=== PATIENT | female | born 1995 | race Two or more races ===

== ENCOUNTER 2019-03-31 01:19 | Inpatient (IN) | payer OTHER ==
[2019-03-31] MEDS ORDERED: Ondansetron 4 MG/2 ML SDV IVPUSH PRN (03:27)
[2019-03-31] MEDS ORDERED: Sodium Chloride 0.9% 10 ML Syringe FLUSH PRN (03:27)
[2019-03-31] MEDS ORDERED: Nalbuphine 10 MG/1 ML Vial IVPUSH PRN (03:27)
[2019-03-31] MEDS ORDERED: Butorphanol 1 MG/ML SDV IVPUSH PRN (03:27)
[2019-03-31] MEDS ORDERED: Sodium Chloride 0.9% 10 ML SDV IV PRN (03:27)
[2019-03-31] MEDS ORDERED: Carboprost Tromethamine 250 MCG/1 ML Amp IM PRN (03:27)
[2019-03-31] MEDS ORDERED: Methylergonovine 0.2 MG/1 ML Amp IM PRN (03:27)
[2019-03-31] MEDS ORDERED: Misoprostol 200 MCG Tab PO PRN (03:27)
[2019-03-31] MEDS ORDERED: Sodium Chloride 0.9% 2.5 ML Syringe FLUSH PRN (03:27)
[2019-03-31] MEDS ORDERED: Lidocaine 1% 50 ML MDV INJECT PRN (03:27)
[2019-03-31] MEDS ORDERED: Water For Irrigation,Sterile 1,000 ML Container IRR PRN (03:27)
[2019-03-31] MEDS ORDERED: Tranexamic Acid 1,000 MG in Sodium Chloride 0.9% 100 ML IV PRN (03:27)
[2019-03-31] MEDS ORDERED: Oxytocin/0.9 % Sodium Chloride 30 UNIT/500 ML BAG IV SCH (03:30)
[2019-03-31] MEDS: Lactated Ringers 1,000 ML IV SCH ×2 (03:47→04:50)
[2019-03-31] MEDS ORDERED: Ropivacaine HCl/PF 100 ML ONE ×2 (05:24→16:06)
[2019-03-31] MEDS ORDERED: fentaNYL 100 MCG/2 ML SDV ONE ×2 (05:24→16:11)
--- NOTE | 2019-03-31 05:41 | PCM.PREANE ---
Preanesthetic Assessment - Anesthesia/Transfusion/Family Hx Anesthesia History: Prior Anesthesia Without Reaction Family History of Anesthesia Reaction: No Transfusion History: No Prior Transfusion(s) - Physical Assessment NPO Status Date: 03/30/19 NPO Status Time: 20:00 Height: 1.52 m Weight: 63.503 kg ASA Class: 1 - Lab Values: Laboratory Last Values WBC 13.29 K/uL (4.0-11.0) H 03/31/19 03:45 RBC 3.72 M/uL (4.30-5.90) L 03/31/19 03:45 Hgb 11.9 g/dL (12.0-16.0) L 03/31/19 03:45 Hct 35.1 % (36.0-46.0) L 03/31/19 03:45 MCV 94.4 fL (80.0-98.0) 03/31/19 03:45 MCH 32.0 pg (27.0-32.0) 03/31/19 03:45 MCHC 33.9 g/dL (31.0-37.0) 03/31/19 03:45 RDW Std Deviation 43.9 fl (28.0-62.0) 03/31/19 03:45 RDW Coeff of Mack 13 % (11.0-15.0) 03/31/19 03:45 Plt Count 148 K/uL (150-400) L 03/31/19 03:45 MPV 12.90 fL (7.40-12.00) H 03/31/19 03:45 Nucleated RBC % 0.0 /100WBC 03/31/19 03:45 Nucleated RBCs # 0 K/uL 03/31/19 03:45 Blood Type O NEGATIVE 03/31/19 03:45 Antibody Screen NEGATIVE 03/31/19 03:45 - Allergies Allergies/Adverse Reactions: Allergies Allergy/AdvReac Type Severity Reaction Status Date / Time No Known Allergies Allergy Verified 03/31/19 01:47 - Acknowledgements Anesthesia Type Planned: Epidural Pt an Appropriate Candidate for the Planned Anesthesia: Yes Alternatives and Risks of Anesthesia Discussed w Pt/Guardian: Yes Pt/Guardian Understands and Agrees with Anesthesia Plan: Yes PreAnesthesia Questionnaire 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: Psychiatric History: Reports: Depression - Past Surgical History HEENT Surgical History: Reports: Oral Surgery - SUBSTANCE USE Smoking Status *Q: Current Every Day Smoker Tobacco Use Within Last Twelve Months: Cigarettes Recreational Drug Use History: No - HOME MEDS Home Medications: Home Meds Pnv No.95/Ferrous Fum/Folic AC [ Tablet] 1 tab PO DAILY 03/31/19 [ History] - CURRENT (IN HOUSE) MEDS Current Meds: Current Medications Butorphanol Tartrate (Stadol) 1 mg IVPUSH Q1H PRN PRN Reason: Pain Carboprost Tromethamine (Hemabate Ds) 250 mcg IM ASDIRECTED PRN PRN Reason: Post Hemorrhage Tranexamic Acid 1,000 mg/ (Sodium Chloride) 110 mls @ 660 mls/hr IV ONETIME PRN PRN Reason: Bleeding Lactated Ringer's (Ringers, Lactated) 1,000 mls @ 150 mls/hr IV ASDIRECTED AUBREY Last Admin: 03/31/19 04:50 Dose: 150 mls/hr Oxytocin/Sodium Chloride (Oxytocin 30 Unit/500 Ml-Ns) 30 unit in 500 mls @ 999 mls/hr IV TITRATE [facility] Lidocaine HCl (Xylocaine 1%) 50 ml INJECT ONETIME PRN PRN Reason: Laceration repair Methylergonovine Maleate (Methergine) 0.2 mg IM ASDIRECTED PRN PRN Reason: Post Hemorrhage Misoprostol (Cytotec) 200 mcg PO ONETIME PRN PRN Reason: Post Hemorrhage Nalbuphine HCl (Nubain) 10 mg IVPUSH Q1H PRN PRN Reason: Pain (severe 7-10) Ondansetron HCl (Zofran) 4 mg IVPUSH Q6H PRN PRN Reason: Nausea/Vomiting Sodium Chloride (Saline Flush) 10 ml FLUSH ASDIRECTED PRN PRN Reason: Keep Vein Open Sodium Chloride (Saline Flush) 2.5 ml FLUSH ASDIRECTED PRN PRN Reason: Keep Vein Open Sodium Chloride (Normal Saline) 10 ml IV ASDIRECTED PRN PRN Reason: IV Use Sterile Water (Sterile Water For Irrigation) 1,000 ml IRR ASDIRECTED PRN PRN Reason: delivery Discontinued Medications Fentanyl (Sublimaze) Confirm Administered Dose 100 mcg .ROUTE .STK-MED ONE Stop: 03/31/19 05:25 Ropivacaine (Naropin 0.2%) Confirm Administered Dose 100 mls @ as directed .ROUTE .[facility] Stop: 03/31/19 05:25
--- NOTE | 2019-03-31 05:45 | PCM.PRNOTE ---
- Free Text/Narrative Note: Anes Note Patient requests epidural for L&D. Sitting position. Level L3-L4 midline approach. Sterile technique. Chloraprep scrub to lumbar area. Sterle fenestrated drape applied. Epidural space easily achieved single attempt with ease using ANURAG technique. ANURAG at 3 cm. Cath threaded 5 cm with ease. Cath secured at skin at 8 cm using sterile clear adhesive dressing. 0530 Test 3 cc 1.5% lidow tih epi negative. 0533 Load 10 cc 0.2% ropivicaine with 1 mcg cc fentanly in slow divided doses. 0538 Pump started with same solution at 8 cc hr with 6 cc q 20 min prn bolus. Quinn well. 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
--- NOTE | 2019-03-31 16:28 | PCM.SN ---
- Free Text/Narrative Note: Active labor. Pushing. Epidural empty. Off x 20 minutes. Due to significant discomfort, bolus 8ml 0.2% Naropin + 100mcg Fentanyl given over 6 minutes. Pain improved 8 minutes post. Will begin pushing.
[2019-03-31] MEDS ORDERED: Benzocaine/Menthol 20%-0.5% Spray 78 GM Cannister TOP PRN (17:53)
[2019-03-31] MEDS ORDERED: Bisacodyl 10 MG Supp RECTAL PRN (17:53)
[2019-03-31] MEDS ORDERED: Lanolin 100% Cream 7 GM Tube TOP PRN (17:53)
[2019-03-31] MEDS ORDERED: Witch Hazel Medicated Pads 40/Jar TOP PRN (17:53)
[2019-03-31] MEDS ORDERED: Ibuprofen 400 MG Tab PO PRN (17:53)
[2019-03-31] MEDS ORDERED: Acetaminophen 500 MG Tab PO PRN (17:53)
[2019-03-31] MEDS ORDERED: Docusate Sodium 100 MG Cap PO PRN (17:53)
--- NOTE | 2019-03-31 22:37 | OR ---
SURGEON: Carlos Moya MD DATE OF PROCEDURE: 03/31/2019 INDICATION: A 23-year-old G3, P2-0-0-2, at 40 weeks and 0 days, presenting in early labor. She made cervical change with regular contractions. Category 1 tracing. She had an uncomplicated . She was Rh negative and received RhoGAM. AROM was performed with clear fluid for augmentation of labor. She received an epidural for anesthesia. She progressed to fully dilated and started pushing with contractions. PREPROCEDURE DIAGNOSES: 1. Lopez intrauterine at 40 weeks and 0 days. 2. Active 2nd stage of labor. POSTOPERATIVE DIAGNOSES: 1. Lopez intrauterine at 40 weeks and 0 days. 2. Active 2nd stage of labor. PROCEDURE PERFORMED: Normal spontaneous vaginal delivery. ANESTHESIA: Epidural. ESTIMATED BLOOD LOSS: 300 mL. FINDINGS: Lopez intrauterine in cephalic presentation Male fetus, Weight of [id number]. 7 and 8 DESCRIPTION OF PROCEDURE: The patient pushed with contractions for about 1.5 hours. The head descended from 0 to +2 station. Category I tracing. She became fatigued and rested for approximately 30 minutes. Her epidural was bolused. She started pushing again with contractions for another 30 minutes. The head then delivered in occiput anterior position, restituted ROT. The anterior shoulder delivered easily, followed by the posterior shoulder and remaining body. No nuchal cord was noted. The baby was placed on maternal chest and evaluated by nursery staff. The baby initially was pale and did not cry, after stimulation quickly became pink and was crying vigorously and moving all extremities. The umbilical cord was clamped and cut after 60 seconds and no longer pulsating. Umbilical cord gases were obtained. The placenta was removed with gentle traction on the umbilical cord. The perineum was examined, and no lacerations were noted. Fundal massage was performed and uterus was firm and at the umbilicus. The bleeding was found to be minimal. The patient tolerated the procedure well and was given care instructions. SE / BENNY /[id number] MTDD
[2019-03-31] MEDS: Ibuprofen 800 MG Tab PO PRN (22:47)
[2019-04-01] MEDS: Acetaminophen 500 MG Tab PO PRN ×2 (02:19→18:04)
[2019-04-01] MEDS: Ibuprofen 800 MG Tab PO PRN ×3 (04:37→18:05)
--- NOTE | 2019-04-01 11:46 | PCM48HPAN ---
Post Anesthesia Note - EVALUATION WITHIN 48HRS OF ANESTHETIC Vital Signs in Normal Range: Yes Patient Participated in Evaluation: Yes Respiratory Function Stable: Yes Airway Patent: Yes Cardiovascular Function Stable: Yes Hydration Status Stable: Yes Pain Control Satisfactory: Yes Nausea and Vomiting Control Satisfactory: Yes Mental Status Recovered: Yes Vital Signs: Last Vital Signs Temp 36.5 C 04/01/19 08:22 Pulse 90 04/01/19 04:41 Resp 14 04/01/19 08:22 BP 114/77 04/01/19 08:22 Pulse Ox 96 04/01/19 08:22 - COMMENTS/OBSERVATIONS Free Text/Narrative:: did well. No problems noted.
--- NOTE | 2019-04-01 11:54 | PCM.PNPP ---
- General Info Date of Service: 04/01/19 Functional Status: Reports: Pain Controlled, Tolerating Diet, Ambulating, Urinating - Review of Systems General: Reports: No Symptoms HEENT: Reports: No Symptoms Pulmonary: Reports: No Symptoms Cardiovascular: Reports: No Symptoms Gastrointestinal: Reports: No Symptoms Genitourinary: Reports: No Symptoms Musculoskeletal: Reports: No Symptoms Skin: Reports: No Symptoms Neurological: Reports: No Symptoms Psychiatric: Reports: No Symptoms - Patient Data Vital Signs - Most Recent: Last Vital Signs Temp 36.5 C 04/01/19 08:22 Pulse 90 04/01/19 04:41 Resp 14 04/01/19 08:22 BP 114/77 04/01/19 08:22 Pulse Ox 96 04/01/19 08:22 Weight - Most Recent: 140 lb I&O - Last 24 Hours: Intake & Output 03/31/19 04/01/19 04/01/19 22:59 06:59 14:59 Intake Total 2 Balance 2 Lab Results - Last 24 Hours: Laboratory Results - last 24 hr 03/31/19 04/01/19 Range/Units 18:35 05:50 Hgb 10.4 L (12.0-16.0) g/dL Hct 30.9 L (36.0-46.0) % Screen NEGATIVE (NEGATIVE) RhIG Candidate? YES Rhogam Indicated YES, BABY RH POS H Med Orders - Current: Current Medications Acetaminophen (Tylenol Extra Strength) 500 mg PO Q4H PRN PRN Reason: Pain Acetaminophen (Tylenol Extra Strength) 1,000 mg PO Q4H PRN PRN Reason: Pain Last Admin: 04/01/19 02:19 Dose: 1,000 mg Benzocaine/Menthol (Dermoplast Pain Relief 20%-0.5% [place]) 78 gm TOP ASDIRECTED PRN PRN Reason: Perineal Comfort Measure Last Admin: 03/31/19 18:26 Dose: 1 spray Bisacodyl (Dulcolax) 10 mg RECTAL ONETIME PRN PRN Reason: Constipation Butorphanol Tartrate (Stadol) 1 mg IVPUSH Q1H PRN PRN Reason: Pain Carboprost Tromethamine (Hemabate Ds) 250 mcg IM ASDIRECTED PRN PRN Reason: Post Hemorrhage Docusate Sodium (Colace) 100 mg PO BID PRN PRN Reason: Constipation Emollient Ointment (Lansinoh Hpa) 0 gm TOP ASDIRECTED PRN PRN Reason: Sore Nipples Last Admin: 03/31/19 18:26 Dose: 1 gm Tranexamic Acid 1,000 mg/ (Sodium Chloride) 110 mls @ 660 mls/hr IV ONETIME PRN PRN Reason: Bleeding Lactated Ringer's (Ringers, Lactated) 1,000 mls @ 150 mls/hr IV ASDIRECTED [facility] Last Admin: 03/31/19 04:50 Dose: 150 mls/hr Oxytocin/Sodium Chloride (Oxytocin 30 Unit/500 Ml-Ns) 30 unit in 500 mls @ 999 mls/hr IV TITRATE [facility] Last Admin: 03/31/19 17:19 Dose: 999 mls/hr Ibuprofen (Motrin) 400 mg PO Q4H PRN PRN Reason: Pain Ibuprofen (Motrin) 800 mg PO Q6H PRN PRN Reason: Pain Last Admin: 04/01/19 04:37 Dose: 800 mg Lidocaine HCl (Xylocaine 1%) 50 ml INJECT ONETIME PRN PRN Reason: Laceration repair Methylergonovine Maleate (Methergine) 0.2 mg IM ASDIRECTED PRN PRN Reason: Post Hemorrhage Misoprostol (Cytotec) 200 mcg PO ONETIME PRN PRN Reason: Post Hemorrhage Nalbuphine HCl (Nubain) 10 mg IVPUSH Q1H PRN PRN Reason: Pain (severe 7-10) Ondansetron HCl (Zofran) 4 mg IVPUSH Q6H PRN PRN Reason: Nausea/Vomiting Sodium Chloride (Saline Flush) 10 ml FLUSH ASDIRECTED PRN PRN Reason: Keep Vein Open Sodium Chloride (Saline Flush) 2.5 ml FLUSH ASDIRECTED PRN PRN Reason: Keep Vein Open Sodium Chloride (Normal Saline) 10 ml IV ASDIRECTED PRN PRN Reason: IV Use Sterile Water (Sterile Water For Irrigation) 1,000 ml IRR ASDIRECTED PRN PRN Reason: delivery Last Admin: 03/31/19 17:40 Dose: 1,000 ml Witch Marcy (Tucks) 1 pad TOP ASDIRECTED PRN PRN Reason: comfort care Last Admin: 03/31/19 18:25 Dose: 1 pad Discontinued Medications Fentanyl (Sublimaze) Confirm Administered Dose 100 mcg .ROUTE .STK-MED ONE Stop: 03/31/19 05:25 Last Admin: 03/31/19 06:14 Dose: Not Given Fentanyl (Sublimaze) Confirm Administered Dose 100 mcg .ROUTE .STK-MED ONE Stop: 03/31/19 16:12 Last Admin: 03/31/19 21:50 Dose: Not Given Ropivacaine (Naropin 0.2%) Confirm Administered Dose 100 mls @ as directed .ROUTE .STK-MED ONE Stop: 03/31/19 05:25 Last Admin: 03/31/19 06:14 Dose: Not Given Ropivacaine (Naropin 0.2%) Confirm Administered Dose 100 mls @ as directed .ROUTE .STK-MED ONE Stop: 03/31/19 16:07 Last Admin: 03/31/19 21:50 Dose: Not Given - Interaction Infant Disposition, : to Nursery Feeding: Breastfed Infant; Nursed Well Support Person: - Recovery Exam Fundal Tone: Firm Fundal Level: 1 Fingerbreadths Below Umbilicus Fundal Placement: Midline Lochia Amount: Scant Lochia Color: Rubra/Red Perineum Description: Edematous Episiotomy/Laceration: None Bladder Status: Voiding - Exam General: Alert, Oriented, Cooperative, No Acute Distress HEENT: Pupils Equal, Pupils Reactive Neck: Supple, Trachea Midline, No JVD Lungs: Normal Respiratory Effort GI/Abdominal Exam: Normal Bowel Sounds, Soft, Non-Tender, No Distention Extremities: Normal Inspection, Normal Range of Motion, Non-Tender, No Pedal Edema Skin: Warm, Dry, Intact Neurological: No New Focal Deficit Psy/Mental Status: Alert, Normal Affect, Normal Mood - Problem List Review Problem List Initiated/Reviewed/Updated: Yes - My Orders Last 24 Hours: My Active Orders 03/31/19 17:53 Acetaminophen [Tylenol Extra Strength] 1,000 mg PO Q4H PRN Acetaminophen [Tylenol Extra Strength] 500 mg PO Q4H PRN Benzocaine/Menthol [Dermoplast Pain Relief 20%-0.5% [place]] 78 gm TOP ASDIRECTED PRN Docusate Sodium [Colace] 100 mg PO BID PRN Ibuprofen [Motrin] 400 mg PO Q4H PRN Ibuprofen [Motrin] 800 mg PO Q6H PRN Lanolin [Lansinoh HPA] See Dose Instructions TOP ASDIRECTED PRN Witch Marcy [Tucks] 1 pad TOP ASDIRECTED PRN bisacodyL [Dulcolax] 10 mg RECTAL ONETIME PRN Breast Pump [WOMSER] Per Unit Routine 03/31/19 17:54 Patient Status [ADT] Routine May Shower [RC] ASDIRECTED Up ad Camille [RC] ASDIRECTED Vital Signs [RC] PER UNIT ROUTINE Assess Lochia [WOMSER] Per Unit Routine Assess Uterine Involution [WOMSER] Per Unit Routine Ice Therapy [OM.PC] Per Unit Routine Perineal Care [OM.PC] Per Unit Routine Peripheral IV Discontinue [OM.PC] Routine Sitz Bath [OM.PC] Per Unit Routine 03/31/19 Dinner Regular Diet [DIET] - Assessment Assessment:: 23yo PPD1 s/p . Stable and recovering well. - Plan Plan:: Vital stable Hgb 10.4, bleeding minimal. No s/s of anemia. baby well. Anticipate discharge home tomorrow.
== END 2019-04-01 20:51 | disposition home or self-care (01) | DRG 807 ==
LOC: MW.OBCHECK 01:19 → MW.OB 01:20 → MW.OBCHECK 03:27 → MW.OB 03:27 → OBSVTOIN 17:18 → MW.OB 19:45
PROVIDERS: ADMIT Obstetrics & Gynecology; ATTEND Obstetrics & Gynecology
PROC: 10E0XZZ Delivery of Products of Conception, External Approach (ICD-10-PCS; principal; 2019-03-31)
PROC: 10907ZC Drainage of Amniotic Fluid, Therapeutic from Products of Conception, Via Natural or Artificial Opening (ICD-10-PCS; 2019-03-31)
PROC: 3E0R3BZ Introduction of Anesthetic Agent into Spinal Canal, Percutaneous Approach (ICD-10-PCS; 2019-03-31)
PROC: 00HU33Z Insertion of Infusion Device into Spinal Canal, Percutaneous Approach (ICD-10-PCS; 2019-03-31)
PROC: 3E0334Z Introduction of Serum, Toxoid and Vaccine into Peripheral Vein, Percutaneous Approach (ICD-10-PCS; 2019-04-01)
DX: O48.0 Post-term pregnancy (principal); Z37.0 Single live birth; Z3A.40 40 weeks gestation of pregnancy; O26.893 Other specified pregnancy related conditions, third trimester; Z67.41 Type O blood, Rh negative; O99.334 Smoking (tobacco) complicating childbirth; F17.210 Nicotine dependence, cigarettes, uncomplicated
CPT/HCPCS: 01967; 36415; 36430; 51702; 59025; 59409; 85014; 85018; 85027; 85460; 86593; 86850; 86900; 86901; A9270-GY; J2590; J2792; J2795; J3010; J7120

== ENCOUNTER 2020-06-16 12:47 | Emergency (ER) | payer BC, OTHER ==
--- NOTE | 2020-06-16 13:13 | PCM.EKG ---
#1 Interpretation EKG Date: 06/16/20 Time: 12:50 Rhythm: Other (sinus tach) Rate (Beats/Min): 108 ST-T: Normal
[2020-06-16 13:47] LABS: BLOOD UREA NITROGEN,BUN 11 mg/dL (7.0-18.0); CARBON DIOXIDE,CO2 29.2 mmol/L (21.0-32.0); CHLORIDE,CL 106 mmol/L (98-107); GLUCOSE RANDOM 98 mg/dL (74-106); LIPASE 59 U/L (73-393); POTASSIUM,K 4.4 mmol/L (3.5-5.1); SODIUM,NA 141 mmol/L (136-145)
--- NOTE | 2020-06-16 13:50 | EDM.PDOC ---
ED HPI GENERAL MEDICAL PROBLEM - General Chief Complaint: Cardiovascular Problem Stated Complaint: CHEST PAIN, TIGHTNESS IN CHEST Time Seen by Provider: 06/16/20 12:53 Source of Information: Reports: Patient History Limitations: Reports: No Limitations - History of Present Illness INITIAL COMMENTS - FREE TEXT/NARRATIVE: Presents reporting chest pain. Patient states that yesterday morning she felt some tightness under her breast bilaterally that increased with a deep breath. No nausea, shortness of breath, diaphoresis, recent upper respiratory infection, fever. She continues to breast-feed her [id number] child in the evenings. No breast tenderness, swelling or redness. She had a TSH drawn in the clinic last month because her PCP thought her thyroid was prominent. That was normal. She is sexually active, not on control, LMP last week. No abdominal pain, diarrhea, constipation, nausea, vomiting. No dysuria. She states she is "naturally thin". She does not smoke. 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: Psychiatric History: Reports: Depression - Past Surgical History HEENT Surgical History: Reports: Oral Surgery Social & Family History - Family History Cardiac: Reports: High Cholesterol, Hypertension OBGYN: Reports: Endometriosis, Musculoskeletal: Reports: Fibromyalgia Psychiatric: Reports: Anxiety, Depression, Other (See Below) Other Psychiatric Family History: alcohol abuse Endocrine/Metabolic: Reports: Diabetes, type II Oncologic: Reports: Lung, Other (See Below) Other Oncologic Family History: mesothelioma - Caffeine Use Caffeine Use: Reports: Soda ED ROS GENERAL - Review of Systems Review Of Systems: Comprehensive ROS is negative, except as noted in HPI. ED EXAM, GENERAL - Physical Exam Exam: See Below Exam Limited By: No Limitations General Appearance: Alert, No Apparent Distress Ears: Normal External Exam Throat/Mouth: Normal Inspection Head: Atraumatic, Normocephalic Neck: Normal Inspection, Supple. No: Lymphadenopathy (L), Lymphadenopathy (R), Thyromegaly Respiratory/Chest: No Respiratory Distress, Lungs Clear, Normal Breath Sounds Cardiovascular: Normal Peripheral Pulses, Regular Rate, Rhythm, No Murmur GI/Abdominal: Soft Extremities: Normal Inspection Neurological: Alert, Oriented Psychiatric: Normal Affect, Normal Mood Skin Exam: Warm, Dry, Intact, Normal Color, No Rash Lymphatic: No Adenopathy #1 Interpretation EKG Date: 06/16/20 Time: 12:50 Rhythm: NSR Rate (Beats/Min): 108 [place]: Normal P-Wave: Present QRS: Normal ST-T: Normal QT: Normal Comparison: NA - No Prior EKG Course - Vital Signs Last Recorded V/S: Last Vital Signs Temp 36.1 C 06/16/20 12:53 Pulse 96 06/16/20 13:47 Resp 18 06/16/20 12:53 BP 95/60 06/16/20 13:47 Pulse Ox 96 06/16/20 13:47 - Orders/Labs/Meds Orders: Active Orders 24 hr Category Date Time Status Cardiac Monitoring [RC] . DIRECTED Care 06/16/20 13:04 Ordered EKG Documentation Completion [RC] STAT Care 06/16/20 13:05 Ordered Pulse Oximetry [RC] ASDIRECTED Care 06/16/20 13:04 Ordered Labs: Laboratory Tests 06/16/20 06/16/20 Range/Units 13:16 13:16 WBC 8.43 (4.0-11.0) K/uL RBC 4.36 (4.30-5.90) M/uL Hgb 13.9 (12.0-16.0) g/dL Hct 41.7 (36.0-46.0) % MCV 95.6 (80.0-98.0) fL MCH 31.9 (27.0-32.0) pg MCHC 33.3 (31.0-37.0) g/dL RDW Std Deviation 44.8 (28.0-62.0) fl RDW Coeff of Mack 13 (11.0-15.0) % Plt Count 208 (150-400) K/uL MPV 11.80 (7.40-12.00) fL Neut % (Auto) 53.3 (48.0-80.0) % Lymph % (Auto) 34.6 (16.0-40.0) % [place] % (Auto) 7.8 (0.0-15.0) % Eos % (Auto) 3.9 (0.0-7.0) % Baso % (Auto) 0.4 (0.0-1.5) % Neut # (Auto) 4.5 (1.4-5.7) K/uL Lymph # (Auto) 2.9 H (0.6-2.4) K/uL [place] # (Auto) 0.7 (0.0-0.8) K/uL Eos # (Auto) 0.3 (0.0-0.7) K/uL Baso # (Auto) 0.0 (0.0-0.1) K/uL Nucleated RBC % 0.0 /100WBC Nucleated RBCs # 0 K/uL Sodium 141 (136-145) mmol/L Potassium 4.4 (3.5-5.1) mmol/L Chloride 106 (98-107) mmol/L Carbon Dioxide 29.2 (21.0-32.0) mmol/L BUN 11 (7.0-18.0) mg/dL Creatinine 0.8 (0.6-1.0) mg/dL Est Cr Clr Drug Dosing TNP Estimated GFR (MDRD) > 60.0 ml/min Glucose 98 (74-106) mg/dL Calcium 8.6 (8.5-10.1) mg/dL Total Bilirubin 0.3 (0.2-1.0) mg/dL AST 6 L (15-37) IU/L ALT 15 (14-63) IU/L Alkaline Phosphatase 79 (46-116) U/L Troponin I < 0.050 (0.000-0.056) ng/mL Total Protein 7.0 (6.4-8.2) g/dL Albumin 3.9 (3.4-5.0) g/dL Globulin 3.1 (2.6-4.0) g/dL Albumin/Globulin Ratio 1.3 (0.9-1.6) Lipase 59 L (73-393) U/L - Re-Assessments/Exams Free Text/Narrative Re-Assessment/Exam: 06/16/20 14:20 Patient states that she only has the pain on a deep breath and it feels more like "a muscle spasm". Departure - Departure Time of Disposition: 14:21 Disposition: Home, Self-Care 01 Condition: Good Clinical Impression: Chest wall pain Forms: ED Department Discharge Additional Instructions: The following information is given to patients seen in the emergency department who are being discharged to home. This information is to outline your options for follow-up care. We provide all patients seen in our emergency department with a follow-up referral. The need for follow-up, as well as the timing and circumstances, are variable depending upon the specifics of your emergency department visit. If you don't have a primary care physician on staff, we will provide you with a referral. We always advise you to contact your personal physician following an emergency department visit to inform them of the circumstance of the visit and for follow-up with them and/or the need for any referrals to a consulting specialist. The emergency department will also refer you to a specialist when appropriate. This referral assures that you have the opportunity for follow-up care with a specialist. All of these measure are taken in an effort to provide you with optimal care, which includes your follow-up. Under all circumstances we always encourage you to contact your private physician who remains a resource for coordinating your care. When calling for follow-up care, please make the office aware that this follow-up is from your recent emergency room visit. If for any reason you are refused follow-up, please contact the [facility] Emergency Department at and asked to speak to the emergency department charge nurse. 1. Aleve 2 tabs a.m. and p.m. or ibuprofen 2-3 tabs 3 times daily as needed for pain 2. If symptoms continue, follow-up with your primary care provider Sepsis Event Note (ED) - Evaluation Sepsis Screening Result: No Definite Risk - Focused Exam Vital Signs: Vital Signs Temp Pulse Resp BP Pulse Ox 06/16/20 13:47 96 95/60 96 06/16/20 13:20 96 97 06/16/20 12:53 36.1 C 114 H 18 138/68 100 - My Orders Last 24 Hours: My Active Orders 06/16/20 13:04 Cardiac Monitoring [RC] . DIRECTED Pulse Oximetry [RC] ASDIRECTED 06/16/20 13:05 EKG Documentation Completion [RC] STAT - Assessment/Plan Last 24 Hours: My Active Orders 06/16/20 13:04 Cardiac Monitoring [RC] . DIRECTED Pulse Oximetry [RC] ASDIRECTED 06/16/20 13:05 EKG Documentation Completion [RC] STAT
[2020-06-16] MEDS ORDERED: Ketorolac 60 MG/2 ML SDV IM ONE (14:20)
== END 2020-06-16 14:37 | disposition home or self-care (01) ==
LOC: MW.ED 12:47
DX: R07.89 Other chest pain (principal)
CPT/HCPCS: 36415; 80053; 83690; 84484; 85025; 93005; 96372; 99285; J1885; 93010; 99283

== ENCOUNTER 2021-10-15 07:48 | Inpatient (IN) | payer BC ==
[2021-10-15] MEDS ORDERED: Butorphanol 1 MG/ML SDV IVPUSH PRN (08:03)
[2021-10-15] MEDS ORDERED: Water For Irrigation,Sterile 1,000 ML Container IRR PRN (08:03)
[2021-10-15] MEDS ORDERED: Tranexamic Acid 1,000 MG in Sodium Chloride 0.9% 100 ML IV PRN (08:03)
[2021-10-15] MEDS ORDERED: Lidocaine 1% 50 ML MDV INJECT PRN (08:03)
[2021-10-15] MEDS ORDERED: Methylergonovine 0.2 MG/1 ML Amp IM PRN (08:03)
[2021-10-15] MEDS ORDERED: Misoprostol 200 MCG Tab PO PRN (08:03)
[2021-10-15] MEDS ORDERED: Sodium Chloride 0.9% 20 ML SDV IV PRN (08:03)
[2021-10-15] MEDS ORDERED: Carboprost Tromethamine 250 MCG/1 ML Amp IM PRN (08:03)
[2021-10-15] MEDS ORDERED: Sodium Chloride 0.9% 2.5 ML Syringe FLUSH PRN (08:03)
[2021-10-15] MEDS: Lactated Ringers 1,000 ML IV SCH ×2 (08:06→09:47)
[2021-10-15] MEDS ORDERED: Oxytocin/0.9 % Sodium Chloride 30 UNIT/500 ML BAG IV SCH (08:15)
[2021-10-15] MEDS ORDERED: ePHEDrine 50 MG/ML SDV IVPUSH PRN ×2 (08:24)
[2021-10-15] MEDS ORDERED: Ropivacaine HCl/PF 400 MG in Premix Bag 1 BAG EPIDUR SCH (08:30)
[2021-10-15] MEDS ORDERED: Lanolin 100% Cream 7 GM Tube TOP PRN (10:48)
[2021-10-15] MEDS ORDERED: oxyCODONE 5 MG Tab PO PRN (10:48)
[2021-10-15] MEDS ORDERED: Benzocaine/Menthol 20%-0.5% Spray 78 GM Cannister TOP PRN (10:48)
[2021-10-15] MEDS ORDERED: Ibuprofen 400 MG Tab PO PRN (10:48)
[2021-10-15] MEDS ORDERED: Acetaminophen 500 MG Tab PO PRN ×2 (10:48)
[2021-10-15] MEDS ORDERED: Bisacodyl 10 MG Supp RECTAL PRN (10:48)
[2021-10-15] MEDS ORDERED: Witch Hazel Medicated Pads 40/Jar TOP PRN (10:48)
[2021-10-15] MEDS ORDERED: Docusate Sodium 100 MG Cap PO PRN (10:48)
[2021-10-15] MEDS: Ibuprofen 800 MG Tab PO PRN ×2 (15:36→22:25)
[2021-10-16] MEDS: Ibuprofen 800 MG Tab PO PRN (07:37)
== END 2021-10-16 17:20 | disposition home or self-care (01) | DRG 560 ==
LOC: MW.OBCHECK 07:48 → MW.OB 07:49 → MW.OBCHECK 08:02 → MW.OB 09:18 → OBSVTOIN 10:32 → MW.OB 15:58
PROVIDERS: ADMIT Obstetrics & Gynecology; ATTEND Obstetrics & Gynecology
PROC: 10E0XZZ Delivery of Products of Conception, External Approach (ICD-10-PCS; principal; 2021-10-15)
PROC: 3E0R3BZ Introduction of Anesthetic Agent into Spinal Canal, Percutaneous Approach (ICD-10-PCS; 2021-10-15)
PROC: 00HU33Z Insertion of Infusion Device into Spinal Canal, Percutaneous Approach (ICD-10-PCS; 2021-10-15)
PROC: 10907ZC Drainage of Amniotic Fluid, Therapeutic from Products of Conception, Via Natural or Artificial Opening (ICD-10-PCS; 2021-10-15)
DX: O26.893 Other specified pregnancy related conditions, third trimester (principal); Z67.41 Type O blood, Rh negative; O76 Abnormality in fetal heart rate and rhythm complicating labor and delivery; Z3A.39 39 weeks gestation of pregnancy; Z37.0 Single live birth; Z20.822 Contact with and (suspected) exposure to COVID-19
CPT/HCPCS: 01967; 36415; 36430; 51702; 59025; 59409; 82803; 85014; 85018; 85027; 85460; 86592; 86850; 86900; 86901; A9270-GY; J2590; J2790; J2795; J7120; U0002